=== PATIENT | female | born 1980 | race Caucasian/White ===

== ENCOUNTER 2020-05-04 16:44 | Inpatient (IN) | payer OTHER ==
[2020-05-04] MEDS ORDERED: OXYTOCIN 10 UNIT/ML VIAL IM PRN (17:58)
[2020-05-04] MEDS ORDERED: fentaNYL 100 MCG/2 ML VIAL IVP PRN (17:58)
[2020-05-04] MEDS ORDERED: OXYTOCIN/SODIUM CHLORIDE 500 ML IV PRN (17:58)
[2020-05-04] MEDS ORDERED: TERBUTALINE 1 MG/ML VIAL SUBQ PRN (17:58)
[2020-05-04] MEDS ORDERED: LIDOCAINE-MPF 1% 30 ML VIAL ID PRN (17:58)
[2020-05-04] MEDS ORDERED: miSOPROStoL 200 MCG TABLET BC PRN (17:58)
[2020-05-04] MEDS ORDERED: ONDANSETRON 4 MG/2 ML VIAL IVP PRN (17:58)
[2020-05-04] MEDS ORDERED: TRANEXAMIC ACID 1,000 MG in SODIUM CHLORIDE 0.9% 100ML 100 ML IV PRN (17:58)
[2020-05-04] MEDS ORDERED: CARBOPROST TROMETHAMINE 250 MCG/ML AMP IM PRN (17:58)
[2020-05-04 18:09] LABS: BASOPHILS % (AUTO) 0.2 %; EOSINOPHILS # (AUTO) 0.1 10^3/uL (0.0-0.7); EOSINOPHILS % (AUTO) 0.9 %; HGB - HEMOGLOBIN 12.5 g/dL (12.0-16.0); LYMPHOCYTES # (AUTO) 1.7 10^3/uL (1.5-3.5); MEAN CORPUSCULAR HEMOGLOBIN 31.6 pg (27.0-31.0); MEAN CORPUSCULAR VOLUME 93.2 fL (81.0-99.0); MEAN PLATELET VOLUME 12.3 fL (7.9-10.8); MONOCYTES # (AUTO) 0.6 10^3/uL (0.0-1.0); MONOCYTES % (AUTO) 6.6 %; NEUTROPHILS # (AUTO) 6.7 10^3/uL (1.5-6.6); NEUTROPHILS % (AUTO) 72.6 %; PLT - PLATELET COUNT 166 10^3/uL (130-450); RED BLOOD COUNT 3.95 10^6/uL (4.20-5.40); RED CELL DISTRIBUTION WIDTH 12.8 % (12.0-15.0); WHITE BLOOD COUNT 9.2 x10^3/uL (4.8-10.8)
[2020-05-04] MEDS: miSOPROStoL 100 MCG TABLET BC SCH ×2 (18:29→22:28)
--- NOTE | 2020-05-04 18:36 | HISTORY & PHYSICAL EXAMINATION ---
History of Present Illness - History of Present Illness HPI Comment/Other: CC: IOL HPI: here for induction ROS: no VB, no LOF, no UC. Good FM. No fevers. Not feeling ill. PMH: recurrent preg loss, hypercoag testing normal per pt, no hx of VTE PSH: D&C x1 Allergies: cats. No food or med allergies. 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 OB: O: AVSS Alert, NAD Abd soft, nt/nd EFW 7# SVE closed/50/-3/soft/posterior cervix off to pt's right side US: vertex, ROP A/P: 39yo P1 at 40w6d here for post dates IOL. SVE unfavorable will start with misoprostol, no contractions. Fetus: AGA, normal genetic screen, normal anatomy scan, category 1 NST GBS neg Rh+, RI, , s/p Tdap Exam - Vital Signs Vital Signs: Vital Signs x48h Temp Pulse Resp BP 05/04/20 16:58 98.6 F 98 18 137/86 H
[2020-05-04] MEDS ORDERED: ZOLPIDEM 5 MG TABLET PO PRN (18:49)
[2020-05-05] MEDS: miSOPROStoL 100 MCG TABLET BC SCH (03:29)
--- NOTE | 2020-05-05 08:40 | PROVIDER PROGRESS NOTE ---
Subjective - Subjective Subjective: Some "intense" cramping last hs when started miso and then resolved and got some sleep. No VB, no LOF AVSS, alert, comfortable, NAD Category 1 NST [place] currently 2-3/10min 5h after last dose of miso. Will transition to pitocin now as contraction frequency is a bit much for more miso. All questions answered. Objective - Vital Signs/Intake & Output Vital Signs: Vital Signs x48h Temp Pulse Resp BP Pulse Ox 05/05/20 07:00 98.6 F 84 18 123/84 H 98 - Lab Results Fish Bones: 05/04/20 17:30 Other Labs: Lab Results x24hrs 05/04/20 05/04/20 Range/Units 17:30 17:30 WBC 9.2 (4.8-10.8) x10^3/uL RBC 3.95 L (4.20-5.40) 10^6/uL Hgb 12.5 (12.0-16.0) g/dL Hct 36.8 L (37.0-47.0) % MCV 93.2 (81.0-99.0) fL MCH 31.6 H (27.0-31.0) pg MCHC 34.0 (32.0-36.0) g/dL RDW 12.8 (12.0-15.0) % Plt Count 166 (130-450) 10^3/uL MPV 12.3 H (7.9-10.8) fL Neut # (Auto) 6.7 H (1.5-6.6) 10^3/uL Lymph # (Auto) 1.7 (1.5-3.5) 10^3/uL [place] # (Auto) 0.6 (0.0-1.0) 10^3/uL Eos # (Auto) 0.1 (0.0-0.7) 10^3/uL Baso # (Auto) 0.0 (0.0-0.1) 10^3/uL Absolute Nucleated RBC 0.00 x10^3/uL Nucleated RBC % 0.0 /100WBC Blood Type A POSITIVE Antibody Screen NEGATIVE
[2020-05-05] MEDS: LACTATED RINGERS 1,000 ML IV SCH ×2 (08:53→21:41)
[2020-05-05] MEDS ORDERED: OXYTOCIN/SODIUM CHLORIDE 500 ML IV SCH (09:00)
[2020-05-05] MEDS ORDERED: ROPIVACAINE 0.2% 200 MG/100 ML BAG EP ONE (23:04)
--- NOTE | 2020-05-05 23:10 | PROVIDER PROGRESS NOTE ---
Subjective - Subjective Subjective: At 12:15 I came to evaluate patient, she was feeling some mild contractions but nothing significant. Contraction frequency q2-3min, category 1 NST. Cervical ripening balloon placed with a speculum, balloons inflated to 60cc each, plan to continue pitocin to effect contractions that are painful. At 22:40 patient was evaluated, digital exam revealed both balloons in the vagina. Balloons deflated, SVE was 4/75/-2. Pt was offered epidural prior to AROM which she would like to do. On 16mU/min of pitocin, UC q2-3min, palpate moderate. Category 1 NST. Objective - Vital Signs/Intake & Output Intake & Output: Intake & Output 05/02/20 05/03/20 05/04/20 05/05/20 23:59 23:59 23:59 23:59 Intake Total 1438.400 Balance 1438.400 - Lab Results Fish Bones: 05/04/20 17:30
--- NOTE | 2020-05-05 23:36 | ANESTHESIA ---
Pre-Anesthesia VS, & Labs - Diagnosis @40+6, IOL - Procedure IRA, PCEA Vital Signs: Temp Pulse Resp BP Pulse Ox 37 C 84 18 123/84 H 98 05/05/20 07:00 05/05/20 07:00 05/05/20 07:00 05/05/20 07:00 05/05/20 07:00 Height 5 ft 7 in Weight (kg) 93.894 kg - Is Patient ?: Yes, Waiver signed (Consented for IRA, [place] prn.) Estimated Due Date:: 04/29/20 (IOL) - Lab Results Current Lab Results: Laboratory Tests 05/04/20 17:30: WBC 9.2, RBC 3.95 L, Hgb 12.5, Hct 36.8 L, MCV 93.2, MCH 31.6 H, MCHC 34.0, RDW 12.8, Plt Count 166, MPV 12.3 H, Neut # (Auto) 6.7 H, Lymph # (Auto) 1.7, [place] # (Auto) 0.6, Eos # (Auto) 0.1, Baso # (Auto) 0.0, Absolute Nucleated RBC 0.00, Nucleated RBC % 0.0 05/04/20 17:30: Blood Type A POSITIVE, Antibody Screen NEGATIVE Fish Bones: 05/04/20 17:30 Home Medications and Allergies Home Medications: Ambulatory Orders Ferrous Sulfate 325 mg PO 05/04/20 Pnv No.95/Ferrous Fum/Folic AC [ Vitamin Tablet] 1 each PO 05/04/20 Active Medications Acetaminophen (Tylenol) 650 mg PO Q6H PRN PRN Reason: PAIN Carboprost Tromethamine (Hemabate) 250 mcg IM Q15M PRN PRN Reason: Step 4: Hemorrhage protocol Stop: 05/09/20 17:59 Fentanyl (Fentanyl) 100 mcg IVP Q1H PRN PRN Reason: PAIN Oxytocin/Sodium Chloride (Pitocin/Sodium Chloride) 500 mls @ 999 mls/hr IV PRN PRN; Protocol PRN Reason: POST- HEMORR PREVENTION Stop: 05/09/20 17:59 Tranexamic Acid 1,000 mg/ (Sodium Chloride) 110 mls @ 660 mls/hr IV .ONCE PRN PRN Reason: EBL >1200mL and within 3hr Stop: 05/09/20 17:59 Lactated Ringer's (Lr) 1,000 mls @ 75 mls/hr IV .[id number] LEE Last Admin: 05/05/20 21:41 Dose: 75 mls/hr Documented by: Oxytocin/Sodium Chloride (Pitocin/Sodium Chloride) 500 mls @ 1 mls/hr IV TITR LEE; Protocol Last Titration: 05/05/20 22:00 Dose: 16 milliunit/min, 16 mls/hr Documented by: Lidocaine HCl (Xylocaine-Mpf 1% Vial) 30 ml ID .ONCE PRN PRN Reason: PERINEAL REPAIR Stop: 05/09/20 17:59 Methylergonovine Maleate (Methergine Inj) 0.2 mg IM .ONCE PRN PRN Reason: Step 2: Hemorrhage protocol Stop: 05/09/20 17:59 Misoprostol (Cytotec) 800 mcg BC .ONCE PRN PRN Reason: Step 3: Hemorrhage protocol Stop: 05/09/20 17:59 Ondansetron HCl (Zofran Inj) 4 mg IVP Q4H PRN PRN Reason: Nausea / Vomiting Oxytocin (Pitocin) 10 unit IM .ONCE PRN PRN Reason: Step one: If no IV access Stop: 05/09/20 17:59 Sodium Chloride (Normal Saline Flush 0.9%) 10 ml IVP PRN PRN PRN Reason: NEEDED PER PROVIDER ORDERS Sodium Chloride (Normal Saline Flush 0.9%) 10 ml IVP 0100,0900,1700 LEE Terbutaline Sulfate (Terbutaline) 0.25 mg SUBQ Q1H PRN PRN Reason: PER PHYSICIAN ORDER Zolpidem Tartrate (Ambien) 5 mg PO QPM PRN PRN Reason: Insomnia Ferrous Sulfate 325 mg PO 05/04/20 Pnv No.95/Ferrous Fum/Folic AC [ Vitamin Tablet] 1 each PO 05/04/20 Allergies/Adverse Reactions: Allergies Allergy/AdvReac Type Severity Reaction Status Date / Time cat dander Allergy Respiratory Verified 05/04/20 18:08 Anes History & Medical History - Medical History Smoking Status: Never smoker Plan Anesthesia Type: Epidural Consent for Procedure(s) Verified and Reviewed: Yes Code Status: Attempt Resuscitation ASA classification: 2-Mild systemic disease Is this case an emergency?: No
[2020-05-05] MEDS ORDERED: NALBUPHINE 10 MG/ML AMP IVP PRN (23:41)
[2020-05-05] MEDS ORDERED: LACTATED RINGERS 500 ML IV ONE (23:41)
[2020-05-05] MEDS ORDERED: METOCLOPRAMIDE 10 MG/2 ML VIAL IVP PRN (23:41)
[2020-05-05] MEDS ORDERED: NALOXONE 0.4 MG/ML VIAL IVP PRN (23:41)
[2020-05-05] MEDS ORDERED: ONDANSETRON 4 MG/2 ML VIAL IVP PRN (23:41)
[2020-05-05] MEDS ORDERED: diphenhydrAMINE INJ 50 MG/ML VIAL IVP PRN (23:41)
[2020-05-05] MEDS ORDERED: ePHEDrine 50 MG/ML VIAL IVP PRN (23:41)
--- NOTE | 2020-05-06 00:09 | PROVIDER PROGRESS NOTE ---
Subjective - Subjective Subjective: Comfortable. AROM clear without difficulty. /-. Recheck SVDarren in 4h. Try to work down on pitocin now that she is ruptured. Objective - Vital Signs/Intake & Output Intake & Output: Intake & Output 05/03/20 05/04/20 05/05/20 05/06/20 23:59 23:59 23:59 23:59 Intake Total 1454.400 Balance 1454.400 - Lab Results Fish Bones: 05/04/20 17:30
[2020-05-06] MEDS: METHYLERGONOVINE 0.2 MG/ML VIAL IM PRN ×3 (05:00→07:28)
[2020-05-06] MEDS ORDERED: SODIUM CHLORIDE 0.9% 500 ML IV ONE (05:35)
[2020-05-06] MEDS ORDERED: ACETAMINOPHEN 1,000 MG/100 ML 100 ML IV ONE (05:43)
[2020-05-06] MEDS ORDERED: diphenhydrAMINE INJ 50 MG/ML VIAL IVP PRN (05:44)
[2020-05-06] MEDS ORDERED: SCOPOLAMINE PATCH TOP PRN (06:23)
[2020-05-06] MEDS ORDERED: oxyCODONE 5 MG TABLET PO PRN (06:23)
[2020-05-06] MEDS ORDERED: WITCH HAZEL/GLYCERIN 1 PAD TOP PRN (06:23)
[2020-05-06] MEDS ORDERED: HYDROCORTISONE 1% CREAM 28 GM TUBE PR PRN (06:23)
[2020-05-06] MEDS ORDERED: SIMETHICONE CHEW 80 MG TABLET PO PRN (06:23)
--- NOTE | 2020-05-06 06:27 | DELIVERY NOTE ---
Delivery Note - Labor Labor: positive: Induced by oxytocin - Delivery Method Delivery Method: positive: Spontaneous vaginal delivery - Cervical Ripening Method Cervical Ripening Method: positive: Balloon device, Misoprostil, Oxytocin - Presentation Presentation: positive: Vertex - Nuchal Cord Nuchal Cord: positive: None - Amniotic Fluid Description Amniotic Fluid Description: positive: Clear - Episiotomy Type Episiotomy Type: positive: None - Laceration Laceration: positive: 2nd degree - Suture Suture Type: positive: Vicryl Suture Size: positive: 2-0 - Delivery Outcome Delivery Outcome: positive: Livebirth - [place] : positive: Placed in direct skin contact with mother, Bulb syringe, Stimulated, Warmed, [place] used sex: positive: Female - Cord Cord: positive: 3 vessels - Placenta Placenta: positive: Intact, Manual removal, Retained - Estimated Blood Loss Estimated Blood Loss (in cc): 1,800 - Post Delivery Events Post Delivery Events: positive: Hemorrhage - Delivery Comments (Free Text/Narrative) Delivery Comments (Free Text/Narrative): See dictation. Placental site bleed. [place] in situ.
[2020-05-06] MEDS ORDERED: OXYTOCIN/SODIUM CHLORIDE 500 ML IV PRN (07:38)
[2020-05-06] MEDS: IBUPROFEN 600 MG TABLET PO PRN ×3 (09:36→21:28)
[2020-05-06] MEDS: SODIUM CHLORIDE FLUSH 0.9% 10 ML SYRINGE IVP PRN ×2 (09:39→22:31)
[2020-05-06] MEDS: SODIUM CHLORIDE FLUSH 0.9% 10 ML SYRINGE IVP SCH ×4 (09:39→18:02)
[2020-05-06] MEDS: ceFAZolin 2 GM in SODIUM CHLORIDE 0.9% 100ML 100 ML IV SCH ×2 (09:39→18:02)
[2020-05-06] MEDS: DOCUSATE SODIUM 100 MG CAPSULE PO SCH ×2 (09:42→21:27)
[2020-05-06 11:13] LABS: BASOPHILS # (AUTO) 0.1 10^3/uL (0.0-0.1); BASOPHILS % (AUTO) 0.3 %; EOSINOPHILS % (AUTO) 0.1 %; HGB - HEMOGLOBIN 11.4 g/dL (12.0-16.0); LYMPHOCYTES # (AUTO) 1.4 10^3/uL (1.5-3.5); LYMPHOCYTES % (AUTO) 9.2 %; MEAN CORPUSCULAR HEMOGLOBIN 31.7 pg (27.0-31.0); MEAN CORPUSCULAR HGB CONC 33.9 g/dL (32.0-36.0); MEAN CORPUSCULAR VOLUME 93.3 fL (81.0-99.0); MEAN PLATELET VOLUME 11.7 fL (7.9-10.8); MONOCYTES % (AUTO) 6.6 %; NEUTROPHILS # (AUTO) 12.1 10^3/uL (1.5-6.6); NEUTROPHILS % (AUTO) 82.6 %; PLT - PLATELET COUNT 131 10^3/uL (130-450); RED CELL DISTRIBUTION WIDTH 12.7 % (12.0-15.0); WHITE BLOOD COUNT 14.7 x10^3/uL (4.8-10.8)
[2020-05-06] MEDS: ACETAMINOPHEN 325 MG TABLET PO PRN ×2 (13:15→19:33)
--- NOTE | 2020-05-06 13:21 | ANESTHESIA POST OP EVALUATION ---
Anesthesia Post Eval - Post Anesthesia Eval Vitals: Last Vital Signs Temp 36.5 C 05/06/20 11:45 Pulse 80 05/06/20 11:45 Resp 18 05/06/20 11:45 BP 138/76 H 05/06/20 11:45 Pulse Ox 100 05/06/20 11:45 CV Function Including HR & BP: positive: Stable Pain Control: positive: Satisfactory (Excellent pain control from epidural per nursing and patient.) Nausea & Vomiting: positive: Negative Mental Status: positive: Baseline Respiratory Status: Airway Patent Hydration Status: Satisfactory Anesthesia Complications: positive: None - Other Details/Therapies Other Details/Therapies: PPH of 1805 due to difficult plancental extraction, required PRBCs. Pt stable, sitting up in bed, now.
--- NOTE | 2020-05-06 15:36 | PROVIDER PROGRESS NOTE ---
Subjective - Subjective Subjective: Feeling sore but well. No faintness, RAMEY, SOB, or CP. well, mood is good, no sensation of bleeding, voiding well. AVSS alert, , NAD. Abd soft, nt/nd Fundus firm, NT, at U Hct 38 39yo P2 PPD #0 s/p , manual placental extraction, bakri, PPH 1800cc QBL. As the hemorrhage was a quant, I don't believe that her Hct has equilibrated yet. Patient is doing very well, doubt that she would need more blood. Will deflate bakri in 12-24h. Cefazolin prophylaxis while in place. Otherwise routine care. Objective - Vital Signs/Intake & Output Vital Signs: Vital Signs x48h Temp Pulse Resp BP BP Pulse Ox 05/06/20 11:45 97.7 F 80 18 138/76 H 100 05/06/20 09:45 134/74 H 05/06/20 09:31 89 18 162/82 H 98 05/06/20 09:11 97.5 F L 93 17 146/75 H 05/06/20 08:31 87 17 139/78 H 98 05/06/20 08:01 84 18 144/94 H 100 Intake & Output: Intake & Output 05/03/20 05/04/20 05/05/20 05/06/20 23:59 23:59 23:59 23:59 Intake Total 7924.343 8584 Output Total 100 200 Balance 7124.479 8028 - Lab Results Fish Bones: 05/06/20 11:08 Other Labs: Lab Results x24hrs 05/06/20 05/05/20 05/04/20 Range/Units 11:08 17:30 06:30 WBC 14.7 H (4.8-10.8) x10^3/uL RBC 3.60 L (4.20-5.40) 10^6/uL Hgb 11.4 L (12.0-16.0) g/dL Hct 33.6 L (37.0-47.0) % MCV 93.3 (81.0-99.0) fL MCH 31.7 H (27.0-31.0) pg MCHC 33.9 (32.0-36.0) g/dL RDW 12.7 (12.0-15.0) % Plt Count 131 (130-450) 10^3/uL MPV 11.7 H (7.9-10.8) fL Neut # (Auto) 12.1 H (1.5-6.6) 10^3/uL Lymph # (Auto) 1.4 L (1.5-3.5) 10^3/uL [place] # (Auto) 1.0 (0.0-1.0) 10^3/uL Eos # (Auto) 0.0 (0.0-0.7) 10^3/uL Baso # (Auto) 0.1 (0.0-0.1) 10^3/uL Absolute Nucleated RBC 0.00 x10^3/uL Nucleated RBC % 0.0 /100WBC Blood Type Cancelled Blood Type Recheck A POSITIVE Antibody Screen Cancelled Crossmatch IS Only See Detail
[2020-05-07] MEDS: ceFAZolin 2 GM in SODIUM CHLORIDE 0.9% 100ML 100 ML IV SCH (02:10)
[2020-05-07] MEDS: ACETAMINOPHEN 325 MG TABLET PO PRN ×3 (02:27→15:10)
[2020-05-07] MEDS ORDERED: LACTATED RINGERS 1,000 ML IV ONE (03:00)
[2020-05-07] MEDS: DOCUSATE SODIUM 100 MG CAPSULE PO SCH (08:43)
[2020-05-07] MEDS: IBUPROFEN 600 MG TABLET PO PRN ×2 (08:43→15:10)
[2020-05-07] MEDS: SODIUM CHLORIDE FLUSH 0.9% 10 ML SYRINGE IVP PRN (08:44)
[2020-05-07] MEDS: SODIUM CHLORIDE FLUSH 0.9% 10 ML SYRINGE IVP SCH ×2 (08:44→15:11)
--- NOTE | 2020-05-07 09:51 | Discharge Plan ---
Discharge Plan Problem Reviewed?: Yes Disposition: Home, Self Care Condition: Critical Diet: Regular Activity Restrictions: No Restrictions (except for nothing in the vagina for 6w) Shower Restrictions: No Driving Restrictions: No No Smoking: If you smoke, Please STOP! Call for help. Follow-up with: Jass Sotelo MD [Provider Admit Priv/Credential] - 6 Weeks (with IUD insertion--notify us that you want IUD when you call to make your appointment)
--- NOTE | 2020-05-07 10:10 | OPERATIVE REPORT ---
DATE OF SERVICE: 05/06/2020 Physician: Danielle Doss MD DELIVERY NOTE PRE-DELIVERY DIAGNOSIS: Intrauterine at 40 weeks 6 days. POST-PROCEDURE DIAGNOSES 1. Status post spontaneous vaginal delivery. 2. hemorrhage. PROCEDURES 1. Spontaneous vaginal delivery, followed by manual extraction of placenta. 2. Placement of Bakri balloon. PHYSICIAN: Danielle Doss MD. COMPLICATIONS: None. ESTIMATED BLOOD LOSS: 1800 mL INTRAVENOUS FLUIDS: 1300 mL of crystalloid and packed red blood cells and FFP being bolused in. COUNTS: Correct x2. COMPLICATIONS: None apparent. DISPOSITION: Stable in her delivery room. ANESTHESIA: Epidural. PROPHYLAXIS: Cefazolin to start after Bakri balloon placement. FINDINGS: Liveborn female, weight 8 pounds 10 ounces, Apgars 8 at one minute and 9 at five minutes. Clear amniotic fluid. Second-degree perineal laceration repaired with 2-0 Vicryl. Empty uterus post placental extraction. Placenta was intact. FIRST STAGE: Patient was admitted for a post-dates induction. She received ripening with misoprostol and then received Pitocin with cervical ripening balloon. Once she was 4 cm, her membranes were ruptured. A few hours after this, she became complete. heart rate tracing was reassuring throughout her labor and delivery. SECOND STAGE: Patient pushed effectively to deliver a liveborn female, OA, over an intact perineum. There was no nuchal cord. The shoulders and body were easily delivered, and the baby was placed on mom's abdomen for warming, drying, and stimulation. The cord was left intact until it stopped pulsating. The umbilical cord was clamped x2 by and then cut by the father of the baby. Cord blood was obtained for typing. The cord was then drained of blood. Pitocin was started for active management of the third stage. Patient's laceration was closed with interrupted sutures of 2-0 Vicryl to restore normal anatomy. THIRD STAGE AND HEMORRHAGE: Patient had a few gushes of blood immediately following delivery. She received 800 mcg of misoprostol and one dose of Methergine. Continuous uterine massage was performed to try to effect delivery of the placenta. The patient continued to have intermittent small gushes of blood. She received a dose of tranexamic acid and methergine. Anesthesia was called in. A second IV was placed and pitocin bolus given. Patient was verbally counseled for manual placental extraction, with possible dilation and curettage if needed. She received 100 mcg of fentanyl. My hand was placed in the uterine cavity, and the placenta was grasped and twisted off of the uterus and brought out vaginally. It was intact. Ultrasound revealed an empty uterus. Bimanual massage was performed. Bleeding was ongoing. She received a dose of Hemabate and another dose of Methergine. Her fundal tone was good throughout the hemorrhage, and so a decision was made to place the Bakri balloon. A speculum was placed, and the cervix was grasped with a ring forceps. The Bakri was placed into the uterine cavity and inflated with 240 mL of saline. Excellent hemostasis resulted. Patient has been checked frequently over the past 45 minutes with good hemostasis and excellent fundal tone. Her uterus is at umbilicus. Her under-buttock drape was weighed. Minus the tare for the drape, and minus the estimated amniotic fluid volume, the patient had lost 1800 mL of blood. She was feeling faint, and so the decision was made to transfuse her due to her symptoms plus high quantitative blood loss. She received IV Tylenol and Benadryl. She received 1 unit of packed red blood cells and 1 unit of FFP. As her bleeding is stable, as are her vitals currently, we will hold on other blood products until we know how she is doing. We will recheck a blood count in 4 hours. Patient tolerated the procedure well. She is eager to breastfeed. TD: 05/06/2020 06:44 JUSTIN
[2020-05-07 15:26] VITALS: BP 147/80
--- NOTE | 2020-05-07 19:03 | Labor Flowsheet ---
Labor Flowsheet Datetime Report Generated by CPN: 05/07/2020 19:03 Datetime: 05/07/2020 15:25 VITAL SIGNS NBP Sys/Altagracia/Mean (mmHg): 147 : 80 : 95 Pulse: 72 SpO2 (%): 100 LaborFlag: Labor Datetime: 05/06/2020 05:45 Communication Comments: O2 NC at @L Datetime: 05/06/2020 05:32 Medication Comments: Hemabate IM left vastuslateralis Stage 2 Comments: Manual removal done by Dr. Doss Datetime: 05/06/2020 05:26 Analgesics/Sedatives: Fentanyl (mcg) @ 100 Datetime: 05/06/2020 05:12 Anesthesia Comments: anesthesia called to come in for placental extraction Datetime: 05/06/2020 05:00 Cervical Ripening Agents: Cytotec @ 800mcg Datetime: 05/06/2020 04:55 MEDICATIONS Pitocin (milliunits): Increased to @ 999 Datetime: 05/06/2020 04:51 UTERINE ACTIVITY Monitor Mode: External Frequency (min): 2-3 Quality: Strong Duration (sec): 70-90 Pattern: Normal: <= 5 Contractions in 10 Minutes Resting Tone (Palpate): Relaxed ASSESSMENT A Monitor Mode: Telemetry FHR Baseline Rate : 140 Variability: Moderate 6-25 bpm Accelerations: None Decelerations: Variable Category: Category II Datetime: 05/06/2020 04:30 Resting Tone IUP (mmHg): Datetime: 05/06/2020 04:19 Temperature (C): 36.6 Datetime: 05/06/2020 04:18 STAGE 2 Pushing: Urge to Push Pushing Position: Pushing with Contractions Datetime: 05/06/2020 04:15 Actions for Decelerations: Side to Side Datetime: 05/06/2020 04:11 COMMUNICATION Communication: Call/Page Placed to Provider Datetime: 05/06/2020 04:00 VAGINAL EXAM Dilatation (cm): 10.0 Effacement (%): 100 Station: 2 Exam by: C. Gambs RN Datetime: 05/06/2020 03:45 FHR Baseline Changes: No Baseline Change Comments: min-mod variability Datetime: 05/06/2020 03:03 Pain Coping: Sleeping Anesthesia Level Check: T10- Umbilicus Datetime: 05/06/2020 02:40 Monitor Interventions for UA: Central Garage Adjusted Monitor Interventions for FHR: Ultrasound Adjusted Datetime: 05/06/2020 02:31 Patient Position/Activity: Right Extreme Datetime: 05/06/2020 01:07 Pain Presence: None/Denies Datetime: 05/05/2020 23:45 Membrane Status: Ruptured Membranes Rupture Method: Artificial Amniotic Fluid Color: Clear Amniotic Fluid Amount: Moderate Amniotic Fluid Odor: None Datetime: 05/05/2020 23:37 I/O Interventions: Laura Cath Inserted Datetime: 05/05/2020 23:29 PAIN Pain Scale: 0 Datetime: 05/05/2020 23:09 Epidural Procedure: Test Dose Datetime: 05/05/2020 23:02 ANESTHESIA Anesthesia Plans: Epidural Datetime: 05/05/2020 22:41 Pain Management: Epidural Datetime: 05/05/2020 22:22 TEACHING Plan of Care: Plan of Care Discussed Teaching Comments: Pt. opting to wait after surgery then get epidural and once comfortable break ba g of water. Datetime: 05/05/2020 22:20 Patient Care Comments: 60cc's from inner and outter cook cath removed, Pt. tolerated well. Datetime: 05/05/2020 22:02 Contraction Comments: Pt. turned to right side and toco was displaced. Readjusted toco. Ctx q2-3.5 min. Datetime: 05/05/2020 22:00 Pitocin Checklist: At Least 1 Acceleration of 15 bpm x 15 Seconds in 30 Minutes or Adequate Variabi lity; No More than 1 Late Deceleration Occurred in Past 30 Minutes; No More than 2 Variable Decelerat ions > 60 Seconds in Duration and decreasing >60 bpm in 30 minutes; No More than 5 Uterine Contractio ns in 10 Minutes for any 20 Minute Interval; Uterus Palpates Soft between Contractions Datetime: 05/05/2020 21:09 Pain Assessment Comments: feeling contractions and stopping to breath through them Unit Routine: Visiting Policy; Waiting Areas; Medications Labor/Induction: Labor Stages; Interventions; Pushing Methods Related: Common Discomforts of ; Activity and Rest Datetime: 05/05/2020 21:02 Oxygen Method: Room Air Datetime: 05/05/2020 19:27 MATERNAL ASSESSMENT Level of Consciousness: Alert DTR's/Clonus: DTRs 2+; No Clonus Headache: Denies Breath Sounds, Left: Clear and Equal Breath Sounds, Right: Clear and Equal Nausea/Vomiting: Denies RUQ Epigastric Pain: Denies Datetime: 05/05/2020 18:33 Pain Type: Cramping; Contraction Pain Location: Abdomen Datetime: 05/05/2020 18:01 Stage of : Labor Datetime: 05/05/2020 16:55 Respirations: 18 Temperature Route: Oral Datetime: 05/05/2020 12:25 Cervix, Consistency: Soft Cervix, Position: Posterior Vaginal Exam Comments: unable to reach to verify dilation Datetime: 05/05/2020 08:53 PATIENT CARE IV/Blood Work: IV Infusing per Order; New IV Bag Hung; IV Bag Number @ 1 Datetime: 05/05/2020 06:50 Provider Reviewed Strip: No Provider Notified (Name): Dr. Doss Notification Reason: Status Update Datetime: 05/05/2020 02:32 Vaginal Bleeding: None
--- NOTE | 2020-05-08 11:37 | DISCHARGE SUMMARY ---
Physician: Danielle Doss MD DATE OF ADMISSION: 05/04/2020 DATE OF DISCHARGE: 05/07/2020 ADMISSION DIAGNOSIS: Intrauterine at 40 weeks and six days. DISCHARGE DIAGNOSES: 1. Status post spontaneous vaginal delivery. 2. hemorrhage from placental site bleeding. 3. Retained placenta. OPERATIONS AND PROCEDURES: 1. 05/06/2020, spontaneous vaginal delivery of a liveborn female followed by hemorrhage w ith Bakri balloon placement. 2. Manual extraction of placenta. HOSPITAL COURSE: The patient was admitted for induction of labor due to post dates. She received ce rvical ripening with misoprostol followed by a cervical ripening balloon. She then received oxytocin . She received an epidural for pain control and had an uncomplicated labor course and delivery until her third stage. Immediately after delivery, the patient had a few gushes of blood and a retained p lacenta. The patient ultimately required management of her hemorrhage including uterotoni cs, manual extraction of the placenta, Bakri balloon placement, and transfusion. Her quantitative bl ood loss was 1800, although her hematocrit only dropped to 33 and this was following her t ransfusion of one unit of PRBCs and one unit of FFP. Her Bakri balloon was left in for 24 hours and the patient had very minimal bleeding throughout her whole hospitalization after the placement of the Bakri. Her bleeding did not increase with deflation of the Bakri and so she was watched for another 12 hours and then discharged home. By the time of discharge, she was eating, ambulating, urinating, and without difficulties. Her pain was under good control and she had no mood problem s. She was not feeling any faintness, dizziness, headaches, chest pain or shortness of breath. DISCHARGE EXAMINATION: Vital Signs. She is afebrile with normal vital signs. She is alert and smil ing, in no apparent distress. Abdomen soft, nontender, nondistended. Fundus firm and 2 cm below the umbilicus. No lower extremity clubbing, cyanosis or edema. PERTINENT LABS: She is Rh positive, rubella immune, varicella immune, and received her Tdap vaccine. DISCHARGE MEDICATIONS: 1. Continue vitamins. 2. Ibuprofen as needed for pain. DISCHARGE FOLLOWUP: At two weeks and six weeks as per routine. DISCHARGE PRECAUTIONS: Routine precautions. DISPOSITION: Home. CONDITION: Good. TD: 05/08/2020 11:17
== END 2020-05-07 18:15 | disposition home or self-care (01) | DRG 768 ==
LOC: WFO 16:44 → FBP 16:50 → WFO 17:57 → FBP 17:58
PROVIDERS: ADMIT Obstetrics & Gynecology; ATTEND Obstetrics & Gynecology
PROC: 10907ZC Drainage of Amniotic Fluid, Therapeutic from Products of Conception, Via Natural or Artificial Opening (ICD-10-PCS; 2020-05-05)
PROC: 10E0XZZ Delivery of Products of Conception, External Approach (ICD-10-PCS; principal; 2020-05-06)
PROC: 0W3R7ZZ Control Bleeding in Genitourinary Tract, Via Natural or Artificial Opening (ICD-10-PCS; 2020-05-06)
PROC: 10D17Z9 Manual Extraction of Products of Conception, Retained, Via Natural or Artificial Opening (ICD-10-PCS; 2020-05-06)
PROC: 0KQM0ZZ Repair Perineum Muscle, Open Approach (ICD-10-PCS; 2020-05-06)
PROC: 30233K1 Transfusion of Nonautologous Frozen Plasma into Peripheral Vein, Percutaneous Approach (ICD-10-PCS; 2020-05-06)
PROC: 30233N1 Transfusion of Nonautologous Red Blood Cells into Peripheral Vein, Percutaneous Approach (ICD-10-PCS; 2020-05-06)
DX: O48.0 Post-term pregnancy (principal); Z37.0 Single live birth; O72.0 Third-stage hemorrhage; D62 Acute posthemorrhagic anemia; O70.1 Second degree perineal laceration during delivery; Z3A.40 40 weeks gestation of pregnancy
CPT/HCPCS: 85025; 86850; 86900; 86901; 86920; A9270; J2210; J7120; P9016; P9017

== ENCOUNTER 2020-05-10 14:26 | Outpatient (CLI) | payer OTHER ==
--- NOTE | 2020-05-10 15:50 | Labor Flowsheet ---
Labor Flowsheet Datetime Report Generated by CPN: 05/10/2020 15:50 Datetime: 05/07/2020 15:25 VITAL SIGNS NBP Sys/Altagracia/Mean (mmHg): 147 : 80 : 95 Pulse: 72 SpO2 (%): 100 LaborFlag: Labor Datetime: 05/06/2020 05:45 Communication Comments: O2 NC at @L Datetime: 05/06/2020 05:32 Medication Comments: Hemabate IM left vastuslateralis Stage 2 Comments: Manual removal done by Dr. Doss Datetime: 05/06/2020 05:26 Analgesics/Sedatives: Fentanyl (mcg) @ 100 Datetime: 05/06/2020 05:12 Anesthesia Comments: anesthesia called to come in for placental extraction Datetime: 05/06/2020 05:00 Cervical Ripening Agents: Cytotec @ 800mcg Datetime: 05/06/2020 04:55 MEDICATIONS Pitocin (milliunits): Increased to @ 999 Datetime: 05/06/2020 04:51 UTERINE ACTIVITY Monitor Mode: External Frequency (min): 2-3 Quality: Strong Duration (sec): 70-90 Pattern: Normal: <= 5 Contractions in 10 Minutes Resting Tone (Palpate): Relaxed ASSESSMENT A Monitor Mode: Telemetry FHR Baseline Rate : 140 Variability: Moderate 6-25 bpm Accelerations: None Decelerations: Variable Category: Category II Datetime: 05/06/2020 04:30 Resting Tone IUP (mmHg): Datetime: 05/06/2020 04:19 Temperature (C): 36.6 Datetime: 05/06/2020 04:18 STAGE 2 Pushing: Urge to Push Pushing Position: Pushing with Contractions Datetime: 05/06/2020 04:15 Actions for Decelerations: Side to Side Datetime: 05/06/2020 04:11 COMMUNICATION Communication: Call/Page Placed to Provider Datetime: 05/06/2020 04:00 VAGINAL EXAM Dilatation (cm): 10.0 Effacement (%): 100 Station: 2 Exam by: C. Gambs RN Datetime: 05/06/2020 03:45 FHR Baseline Changes: No Baseline Change Comments: min-mod variability Datetime: 05/06/2020 03:03 Pain Coping: Sleeping Anesthesia Level Check: T10- Umbilicus Datetime: 05/06/2020 02:40 Monitor Interventions for UA: [place] Adjusted Monitor Interventions for FHR: Ultrasound Adjusted Datetime: 05/06/2020 02:31 Patient Position/Activity: Right Extreme Datetime: 05/06/2020 01:07 Pain Presence: None/Denies Datetime: 05/05/2020 23:45 Membrane Status: Ruptured Membranes Rupture Method: Artificial Amniotic Fluid Color: Clear Amniotic Fluid Amount: Moderate Amniotic Fluid Odor: None Datetime: 05/05/2020 23:37 I/O Interventions: Laura Cath Inserted Datetime: 05/05/2020 23:29 PAIN Pain Scale: 0 Datetime: 05/05/2020 23:09 Epidural Procedure: Test Dose Datetime: 05/05/2020 23:02 ANESTHESIA Anesthesia Plans: Epidural Datetime: 05/05/2020 22:41 Pain Management: Epidural Datetime: 05/05/2020 22:22 TEACHING Plan of Care: Plan of Care Discussed Teaching Comments: Pt. opting to wait after surgery then get epidural and once comfortable break ba g of water. Datetime: 05/05/2020 22:20 Patient Care Comments: 60cc's from inner and outter cook cath removed, Pt. tolerated well. Datetime: 05/05/2020 22:02 Contraction Comments: Pt. turned to right side and toco was displaced. Readjusted toco. Ctx q2-3.5 min. Datetime: 05/05/2020 22:00 Pitocin Checklist: At Least 1 Acceleration of 15 bpm x 15 Seconds in 30 Minutes or Adequate Variabi lity; No More than 1 Late Deceleration Occurred in Past 30 Minutes; No More than 2 Variable Decelerat ions > 60 Seconds in Duration and decreasing >60 bpm in 30 minutes; No More than 5 Uterine Contractio ns in 10 Minutes for any 20 Minute Interval; Uterus Palpates Soft between Contractions Datetime: 05/05/2020 21:09 Pain Assessment Comments: feeling contractions and stopping to breath through them Unit Routine: Visiting Policy; Waiting Areas; Medications Labor/Induction: Labor Stages; Interventions; Pushing Methods Related: Common Discomforts of ; Activity and Rest Datetime: 05/05/2020 21:02 Oxygen Method: Room Air Datetime: 05/05/2020 19:27 MATERNAL ASSESSMENT Level of Consciousness: Alert DTR's/Clonus: DTRs 2+; No Clonus Headache: Denies Breath Sounds, Left: Clear and Equal Breath Sounds, Right: Clear and Equal Nausea/Vomiting: Denies RUQ Epigastric Pain: Denies Datetime: 05/05/2020 18:33 Pain Type: Cramping; Contraction Pain Location: Abdomen Datetime: 05/05/2020 18:01 Stage of : Labor Datetime: 05/05/2020 16:55 Respirations: 18 Temperature Route: Oral Datetime: 05/05/2020 12:25 Cervix, Consistency: Soft Cervix, Position: Posterior Vaginal Exam Comments: unable to reach to verify dilation Datetime: 05/05/2020 08:53 PATIENT CARE IV/Blood Work: IV Infusing per Order; New IV Bag Hung; IV Bag Number @ 1 Datetime: 05/05/2020 06:50 Provider Reviewed Strip: No Provider Notified (Name): Dr. Doss Notification Reason: Status Update Datetime: 05/05/2020 02:32 Vaginal Bleeding: None
== END 2020-05-10 15:00 | disposition home or self-care (01) ==
LOC: WFO 14:26 → FBP 14:27 → WFO 15:00
PROVIDERS: ATTEND Obstetrics & Gynecology
DX: P92.5 Neonatal difficulty in feeding at breast (principal)
CPT/HCPCS: 99403

== ENCOUNTER 2021-11-12 09:19 | Outpatient (CLI) | payer OTHER ==
--- NOTE | 2021-11-12 11:23 | MRI Report ---
PROCEDURE: Knee LT W/O INDICATIONS: PAIN IN KNEE TECHNIQUE: Noncontrast sagittal PD fast spin echo and T2 fast spin echo with fat saturation, sagittal 3-D gradie nt sequence with fat saturation; coronal T1 spin echo and PD fast spin echo with fat saturation, and axial PD fast spin echo with fat saturation through the knee. COMPARISON: None. FINDINGS: Image quality: Excellent. Menisci: Oblique tear involving posterior horn of medial meniscus is seen extending to inferior artic ulating surface. There is no focal lateral meniscal tear. Peripheral displacement of medial meniscus bowing medial collateral ligament is seen. The meniscal root ligaments appear intact. Cruciate ligaments: The anterior and posterior cruciate ligaments appear intact. Medial structures: The medial collateral ligament appears intact. The posterior oblique ligament, s emimembranosus tendon insertions, and oblique popliteal ligament, and meniscocapsular junction appear intact. Visualized portions of the pes anserinus tendons appear normal. No abnormal bursal fluid. Lateral structures: The lateral collateral ligament, long and short heads of the biceps femoris tend on appear intact. The popliteus tendon appears normal; the popliteofibular ligament appears intact. The posterosuperior and anteroinferior popliteomeniscal fascicles appear intact. The arcuate and fa bellofibular ligaments appear intact, around the lateral inferior geniculate artery. Iliotibial band appears normal. Anterior structures: Distal quadriceps tendinosis at its insertion on superior patella is seen. [place] lar tendon is intact. Patellar alignment is normal. No femoral trochlear dysplasia or ventral trochl ear prominence. No edema in the infrapatellar fat pad. Bones and cartilage: No bone marrow contusions or fractures. 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 Low-grade chondromalacia involving lateral facet of patella cartilage is also noted. Joint space: There is physiologic knee joint fluid. No Kohler's cyst. Normal appearing synovial pli are incidentally noted. IMPRESSION: 1. Oblique tear involving posterior horn of medial meniscus extending to inferior articulating surfac e. No focal lateral meniscal tear. 2. Cruciate ligaments are intact. 3. Distal quadriceps tendinosis at its patellar insertion. Patellar tendon is intact. 4. 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 Low-grade ch ondromalacia involving lateral facet of patella cartilage. Reviewed by: Shimon Cotto MD on 11/12/2021 11:21 AM PDT Approved by: Shimon Cotto MD on 11/12/2021 11:21 AM PDT Station ID: [id number]
== END 2021-11-12 09:20 | disposition home or self-care (01) ==
LOC: DI 09:19
PROVIDERS: ATTEND Student in an Organized Health Care Education/Training Program
DX: S83.242A Other tear of medial meniscus, current injury, left knee, initial encounter (principal); M67.864 Other specified disorders of tendon, left knee; M17.12 Unilateral primary osteoarthritis, left knee; M22.42 Chondromalacia patellae, left knee